=== PATIENT | female | born 1970 | race Caucasian/White ===

== ENCOUNTER 2019-03-31 11:24 | Outpatient (CLI) | payer BC ==
[~2019-03-31 11:24] MED LIST: Gadobenate Dimeglumine 529 MG/1 ML (20ML VIAL) ONE
--- NOTE | 2019-03-31 13:43 | MRI ---
MRI OF BRAIN WITH AND WITHOUT CONTRAST: INDICATION: Diplopia, headache, dizziness, and visual auras. FINDINGS: Ventricular system is normal in size. There is no mass effect or midline shift. There are a few sca ttered foci of signal alteration of the cerebral hemispheres bilaterally. No acute territorial infar ction. Visualized skull base flow voids are maintained. There is mild right mastoid fluid. No pathologic intraaxial enhancement is identified by postcontrast imaging. IMPRESSION: 1. No acute intracranial abnormality. 2. A few scattered foci of nonspecific white matter signal alteration. This could be on the basis o f minimal chronic ischemic disease. MRI ORBITS WITH AND WITHOUT CONTRAST: INDICATION: Diplopia, headache, dizziness, and visual auras. FINDINGS: Globes demonstrate symmetric morphology. Intraocular lenses are maintained in alignment. No evidenc e of enhancing intraconal or extraconal mass of either orbit. No enhancing intrabulbar mass is seen bilaterally. The extraocular muscles and optic nerves demonstrate symmetric morphology and signal. Superior ophthalmic veins are of appropriate caliber bilaterally. No obvious intrinsic pathology of either lacrimal gland. Optic chiasm is free from mass effect. Infundibulum maintains appropriate mi dline position. IMPRESSION: No acute orbital pathology is demonstrated, bilaterally. POS: [facility]
== END 2019-03-31 11:25 | disposition home or self-care (01) ==
LOC: SCSMRI 11:24
PROVIDERS: ATTEND Psychiatry & Neurology Neurology
DX: H53.2 Diplopia (principal); R90.89 Other abnormal findings on diagnostic imaging of central nervous system
CPT/HCPCS: 70553; A9577